=== PATIENT | male | born 2000 | race Two or more races ===

== ENCOUNTER 2020-04-03 21:31 | Emergency (ER) | payer MEDICAID, SELFPAY ==
[2020-04-03] MEDS ORDERED: Dexamethasone 4 MG TAB ONE (22:55)
== END 2020-04-03 22:59 | disposition home or self-care (01) ==
LOC: ERS 21:31
DX: J02.0 Streptococcal pharyngitis (principal)
CPT/HCPCS: 87081; 87430; 99283; J8540